=== PATIENT | female | born 1995 | race Caucasian/White ===

== ENCOUNTER 2017-09-26 14:56 | Outpatient (RCR) | payer OTHER, SELFPAY ==
--- NOTE | 2017-09-26 19:14 | HP.SP.AD ---
History - History Date of Eval: 09/26/17 - Pain Is pain an issue with your current prescribed condition?: No - Personal Patients Living Arrangements: With Family Other Impressions - Comments Patient information -: Patient came as she wondered if she had stuttering difficulty. Patient is currently taking anxiety medication and has been taking this since 2016. She stated she had some speech in 3 or 4ths grade but did not receive it after that. she was on a IEP in school through high school but speech was not on her IEP. Patient was very anxious and her hands were shaking when she came in to therapy room. She stated she does not drive yet and has just begun to put in applications to local pet stores to be a alex or groomer. 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 Patient's speech was characterized by some hesitations and at times she did stop to think about what she wanted to say. Patient stated that she is going to be setting up counselling and therapist discussed with her that this would be helpful to help her with her anxiety and controlling it which in turn may help her with times when she feels she is having difficulties talking. Plan - Plan Plan: no Therapy is recommended. - Recommendations Treatment Warranted: No Education - Patient Instruction Patient Education: Diagnosis Person Taught: Patient Teaching Method: Discussion Response to teaching: Return demonstration
--- NOTE | 2017-09-26 19:16 | HP.SP.DC ---
ST Discharge Summary - Discharged: Discharge: Patient came as she wondered if she had stuttering difficulty. Patient is currently taking anxiety medication and has been taking this since 2016. She stated she had some speech in 3 or 4ths grade but did not receive it after that. she was on a IEP in school through high school but speech was not on her IEP. Patient was very anxious and her hands were shaking when she came in to therapy room. She stated she does not drive yet and has just begun to put in applications to local pet stores to be a alex or groomer. 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 Patient's speech was characterized by some hesitations and at times she did stop to think about what she wanted to say. Patient stated that she is going to be setting up counselling and therapist discussed with her that this would be helpful to help her with her anxiety and controlling it which in turn may help her with times when she feels she is having difficulties talking.
== END 2017-09-26 19:00 | disposition home or self-care (01) ==
LOC: SP 14:56
PROVIDERS: Family Provider Family Medicine; PCP Family Medicine; Visit Provider Family Medicine
DX: R47.9 Unspecified speech disturbances (principal)

== ENCOUNTER → 2018-01-30 08:39 | Outpatient (CLI) | payer OTHER, SELFPAY ==
[2018-01-30 10:27] LABS: Anion Gap 6 (5-15); BUN 11 mg/dL (7-18); BUN/Creat Ratio 10.9 RATIO (10-20); Calcium,Total 8.6 mg/dL (8.5-10.1); Chloride 108 mmol/L (98-107); Cholesterol 139 mg/dL (200); Creatinine, Serum 1.01 mg/dL (0.55-1.02); EST Glomerular Filtration Rate 72 mL/min (>60); Est Glom Filt Rate - Afr Amer 87 mL/min (>60); Glucose 85 mg/dL (74-106); High Density Lipoprotein 38 mg/dL; Potassium 4.3 mmol/L (3.5-5.1); Sodium Level 139 mmol/L (136-145); Triglycerides 145 mg/dL; Very Low Density Lipoprotein 29 mg/dL (5-40)
== END ==
PROVIDERS: Family Provider Family Medicine; PCP Family Medicine; Visit Provider Family Medicine
DX: Z00.00 Encounter for general adult medical examination without abnormal findings (principal)
CPT/HCPCS: 36415; 80048; 80061

== ENCOUNTER → 2019-11-11 09:14 | Outpatient (CLI) | payer OTHER, SELFPAY ==
[2019-11-11 13:20] LABS: Anion Gap 6 (5-15); BUN 13 mg/dL (7-18); Calcium,Total 8.6 mg/dL (8.5-10.1); Chloride 108 mmol/L (98-107); Cholesterol 143 mg/dL (200); EST Glomerular Filtration Rate 72 mL/min (>60); Est Glom Filt Rate - Afr Amer 87 mL/min (>60); Glucose 81 mg/dL (74-106); High Density Lipoprotein 48 mg/dL; Potassium 4.4 mmol/L (3.5-5.1); Sodium Level 139 mmol/L (136-145); Triglycerides 101 mg/dL; Very Low Density Lipoprotein 20 mg/dL (5-40)
== END ==
PROVIDERS: PCP Family Medicine; Referring Provider Family Medicine; Visit Provider Family Medicine
DX: Z00.00 Encounter for general adult medical examination without abnormal findings (principal)
CPT/HCPCS: 36415; 80048; 80061

== ENCOUNTER → 2020-11-01 12:21 | Outpatient (CLI) | payer OTHER, SELFPAY ==
[2020-11-01 15:37] LABS: Absolute Lymphocyte Count 2.04 X10^3/uL (0.83-4.51); Absolute Neutrophil Count 3.8 X10^3/uL (2.0-7.7); Basophil# 0.02 X10^3/uL; Basophil% 0.3 % (0-1); Eosinophil# 0.09 X10^3/uL; Eosinophils% 1.3 % (0-5); Hematocrit 29.1 % (37-47); Hemoglobin 8.9 g/dL (12.0-15.0); Lymphocyte # 2.04 X10^3/ul (0.83-4.51); Lymphocyte % 30.5 % (19-41); Mean Corp Hgb Conc 30.6 g/dL (32-36); Mean Corpuscular Volume 78.4 fL (81-99); Mean Platelet Vol. 9.5 fl (6.2-12.0); Monocyte# 0.74 X10^3/uL; Monocyte% 11.1 % (0-10); NRBC Flagged by Analyzer 0 % (0-5); Neutrophil # 3.79 X10^3/uL (2.7-7.7); Neutrophil % 56.7 % (47-70); Platelet Count 361 K/mm3 (150-450); RBC Distribution Width CV 14.9 % (11.6-14.6); RBC Distribution Width SD 42.1 fl (35.1-43.9); Red Blood Count 3.71 M/mm3 (4.2-5.4); White Blood Count 6.7 K/mm3 (4.4-11.0)
[2020-11-01 16:07] LABS: Anion Gap 5 (5-15); BUN 9 mg/dL (7-18); BUN/Creat Ratio 10.3 RATIO (10-20); Calcium,Total 8.7 mg/dL (8.5-10.1); Chloride 109 mmol/L (98-107); Creatinine, Serum 0.87 mg/dL (0.55-1.02); EST Glomerular Filtration Rate 83 mL/min (>60); Est Glom Filt Rate - Afr Amer 101 mL/min (>60); Glucose 92 mg/dL (74-106); Potassium 4.2 mmol/L (3.5-5.1); Sodium Level 138 mmol/L (136-145); Thyroid Stim Hormone (TSH) 1.34 uIU/mL (0.358-3.74)
[2020-11-08 20:23] LABS: HPV Reflexed? NOT INDICATED
== END ==
PROVIDERS: PCP Family Medicine; Referring Provider Family Medicine; Visit Provider Registered Nurse
DX: N94.6 Dysmenorrhea, unspecified (principal)
CPT/HCPCS: 36415; 80048; 84443; 85025; 88175; G0145

== ENCOUNTER → 2023-09-13 | Outpatient (CLI) | payer SELFPAY ==
[2023-09-13 17:24] LABS: Absolute Lymphocyte Count 2.25 X10^3/uL (0.83-4.51); Basophil# 0.05 X10^3/uL; Basophil% 0.5 % (0-1); Eosinophil# 0.15 X10^3/uL; Eosinophils% 1.6 % (0-5); Hematocrit 44.3 % (37-47); Hemoglobin 14.8 g/dL (12.0-15.0); Lymphocyte # 2.25 X10^3/ul (0.83-4.51); Lymphocyte % 24.6 % (19-41); Mean Corp Hgb Conc 33.4 g/dL (32-36); Mean Corpuscular Hgb 29.5 pg (27.0-32.0); Mean Corpuscular Volume 88.4 fL (81-99); Mean Platelet Vol. 9.4 fl (6.2-12.0); Monocyte# 0.71 X10^3/uL; Monocyte% 7.8 % (0-10); NRBC Flagged by Analyzer 0 % (0-5); Neutrophil # 5.96 X10^3/uL (2.7-7.7); Neutrophil % 65.1 % (47-70); Platelet Count 268 K/mm3 (150-450); RBC Distribution Width CV 13.1 % (11.6-14.6); RBC Distribution Width SD 42.3 fl (35.1-43.9); Red Blood Count 5.01 M/mm3 (4.2-5.4); White Blood Count 9.2 K/mm3 (4.4-11.0)
== END | disposition home or self-care (01) ==
PROVIDERS: PCP Family Medicine; Referring Provider Family Medicine; Visit Provider Family Medicine
DX: D64.9 Anemia, unspecified (principal)
CPT/HCPCS: 36415; 85025

== ENCOUNTER → 2023-11-15 | Outpatient (CLI) | payer OTHER, SELFPAY ==
--- NOTE | 2023-11-15 16:08 | RAD_ITS ---
HISTORY: HEEL/ FOOT PAIN. TECHNIQUE: XR Calcaneus Min 2 Views. COMPARISON: None. FINDINGS: BONES : No acute fracture identified. Mineralization unremarkable. 4 mm plantar calcaneal spur present. JOINTS: No dislocation. Joint spaces maintained. RAD/Calcaneus min 2 Views IMPRESSION: No acute fracture or dislocation identified in the right calcaneus. Electronically Signed: Karla Marte MD at 11:39 EDT ,
== END | disposition home or self-care (01) ==
LOC: MTRAD 16:06
PROVIDERS: PCP Family Medicine; Referring Provider Family Medicine; Visit Provider Family Medicine
DX: M79.671 Pain in right foot (principal)
CPT/HCPCS: 73650

== ENCOUNTER → 2024-03-20 | Outpatient (CLI) | payer SELFPAY ==
[2024-03-20 10:59] LABS: Anion Gap 4 (5-15); BUN 13 mg/dL (7-18); BUN/Creat Ratio 13.3 RATIO (10-20); Calcium,Total 9.6 mg/dL (8.5-10.1); Chloride 107 mmol/L (98-107); Cholesterol 178 mg/dL (200); Creatinine, Serum 0.98 mg/dL (0.55-1.02); EST Glomerular Filtration Rate 71 mL/min (>60); Est Glom Filt Rate - Afr Amer 86 mL/min (>60); Glucose 87 mg/dL (74-106); High Density Lipoprotein 56 mg/dL; Potassium 4.2 mmol/L (3.5-5.1); Sodium Level 137 mmol/L (136-145); Triglycerides 102 mg/dL; Very Low Density Lipoprotein 20 mg/dL (5-40)
== END | disposition home or self-care (01) ==
LOC: MTLAB 09:26
PROVIDERS: PCP Family Medicine; Referring Provider Family Medicine; Visit Provider Family Medicine
DX: Z00.00 Encounter for general adult medical examination without abnormal findings (principal); F32.A Depression, unspecified
CPT/HCPCS: 36415; 80048; 80061; 84443